=== PATIENT | female | born 1940 | race African-American/Black ===

== ENCOUNTER 2017-11-06 16:54 | Inpatient (IN) | payer MEDICARE ==
[~2017-11-06] VITALS: Ht 157.5 cm; Wt 89.6 kg
[~2017-11-06 16:54] MED LIST: ALPHAGAN OPHTH D5 ML OU; COLACE 100100 MG/CAP PO; NORCO 325 MG-51 TAB PO; NOVOLOGMIX70/30; PRINIVIL20 MG; PROCARDIA XL 6060 MG PO; TRAVATAN Z 5 ML5 ML OU
[2017-11-06] MEDS ORDERED: LIPITOR20 MG PO (17:36)
[2017-11-06] MEDS ORDERED: ASPIRIN 81M81 MG/TA2 PO (17:36)
[2017-11-06] MEDS ORDERED: ADVIL200 MG PO (17:37)
[2017-11-06] MEDS ORDERED: NOVOLIN 70/30 710 ML SQ (17:39)
[2017-11-06] MEDS ORDERED: NYSTATIN CREAM15 GM TP (17:40)
[2017-11-06 17:46] VITALS: BP 149/60; PULSE 100; TEMP 99.8
[2017-11-06] MEDS ORDERED: TYLENOL 325MG325 MG PO (17:52)
[2017-11-06] MEDS ORDERED: TRAVATAN Z 2.52.5 ML OU (17:56)
[2017-11-06] MEDS ORDERED: ALPHAGAN OPHTH D5 ML (17:56)
[2017-11-06 21:17] VITALS: BP 119/60; PULSE 78; TEMP 97.4
[2017-11-07] VITALS (10 sets, daily range): BP systolic 114–195; BP diastolic 58–97; PULSE 57–78; TEMP 98.1–99
[2017-11-08 02:11] VITALS: BP 109/52; PULSE 65; TEMP 98.7
[2017-11-08 05:32] VITALS: BP 144/69; PULSE 73; TEMP 98.3
[2017-11-08 10:06] VITALS: BP 137/69; PULSE 87; TEMP 98.6
[2017-11-08 13:41] VITALS: BP 130/69; PULSE 78; TEMP 98.7
[2017-11-08] MEDS ORDERED: AMOXICILLIN 8751 TAB PO (17:32)
== END 2017-11-08 18:45 | disposition home or self-care (01) | DRG 392 ==
LOC: SURG 16:54
PROC: 0W9J3ZZ Drainage of Pelvic Cavity, Percutaneous Approach (ICD-10-PCS; principal; 2017-11-07)
DX: R10.31 Right lower quadrant pain (principal); R18.8 Other ascites; I10 Essential (primary) hypertension; E11.65 Type 2 diabetes mellitus with hyperglycemia; E78.2 Mixed hyperlipidemia; Z79.4 Long term (current) use of insulin; Z90.5 Acquired absence of kidney
CPT/HCPCS: 99232-AI; J0696; J1815; J2250; J2270; J7030; Q9967

== ENCOUNTER 2017-12-14 07:50 | Day surgery (SDC) | payer MEDICARE ==
[~2017-12-14] VITALS: Ht 160 cm; Wt 88.7 kg
[~2017-12-14 07:50] MED LIST changes: +ADVIL200 MG PO; +ALPHAGAN OPHTH D5 ML; +AMOXICILLIN 8751 TAB PO; +ASPIRIN 81M81 MG/TA2 PO; +LIPITOR20 MG PO; +NOVOLIN 70/30 710 ML SQ; +NYSTATIN CREAM15 GM TP; +TRAVATAN Z 2.52.5 ML OU; +TYLENOL 325MG325 MG PO
[2017-12-14] MEDS ORDERED: NOVOLOGMIX70/30 SQ ×2 (08:17)
[2017-12-14] MEDS ORDERED: PROCARDIA XL 6060 MG PO (08:18)
[2017-12-14] MEDS ORDERED: PRINIVIL40 MG PO (08:18)
[2017-12-14] MEDS ORDERED: NYSTATIN CREAM15 GM TP (08:19)
[2017-12-14] MEDS ORDERED: ADVIL200 MG PO (08:19)
[2017-12-14] MEDS ORDERED: ASPIRIN E.C. 8181 MG PO (08:20)
[2017-12-14] MEDS ORDERED: LIPITOR20 MG PO (08:20)
[2017-12-14 08:41] VITALS: BP 132/96; PULSE 70; TEMP 97.7
[2017-12-14 09:35] VITALS: BP 98/56; PULSE 74; TEMP 97.4
[2017-12-14 09:45] VITALS: BP 116/74; PULSE 73
[2017-12-14 10:00] VITALS: BP 134/79; PULSE 73
[2017-12-14 11:54] VITALS: BP 107/53; PULSE 66
== END 2017-12-14 10:20 | disposition home or self-care (01) ==
LOC: SDCO 07:50
DX: K65.1 Peritoneal abscess (principal); E11.9 Type 2 diabetes mellitus without complications; I10 Essential (primary) hypertension; M19.90 Unspecified osteoarthritis, unspecified site; E78.00 Pure hypercholesterolemia, unspecified; Z90.710 Acquired absence of both cervix and uterus; Z90.49 Acquired absence of other specified parts of digestive tract; Z90.5 Acquired absence of kidney; Z79.4 Long term (current) use of insulin
CPT/HCPCS: OP; J2250; J2704; J7030

== ENCOUNTER 2018-12-30 20:33 | Emergency (ER) | payer MEDICARE ==
[~2018-12-30] VITALS: Ht 160 cm; Wt 89.1 kg
[~2018-12-30 20:33] MED LIST changes: +ASPIRIN E.C. 8181 MG PO; +NOVOLOGMIX70/30 SQ; +PRINIVIL40 MG PO
[2018-12-30 20:42] VITALS: TEMP 98.5
[2018-12-30 21:31] LABS: BASO % 0.7 % (0.0-2.0); EOS % 0.7 % (0-4.0); GRAN # 3.2 (1.4-6.5); GRAN % 69.6 % (42.2-75.2); HEMOGLOBIN 11.4 g/dl (12.5-16.0); LYMPH % 22.2 % (20.0-51.0); MEAN CELL VOLUME 86 fl (80.0-100.0); MEAN CORPUSCULAR HEMOGLOBIN 27 pg (27.0-31.0); MEAN CORPUSCULAR HGB CONC 32 g/dl (33.0-37.0); MEAN PLATELET VOLUME 10.9 fl (7.4-10.4); MONO # 0.3 (0.1-0.6); MONO % 6.4 % (1.7-9.3); PLATELET COUNT 186 K/mm3 (130-400); RED BLOOD COUNT 4.16 M/mm3 (4.10-5.30); REDCELL DISTRIBUTION WIDTH-CV 14.7 % (11.5-14.5)
[2018-12-30 21:33] LABS: HEMATOCRIT 35.7 % (37.0-47.0)
[2018-12-30 21:43] LABS: ALBUMIN 4.2 gm/dL (3.5-5.0); BILIRUBIN,TOTAL 0.2 mg/dL (0.0-1.0); CALCIUM 9.5 mg/dL (8.4-10.2); CREATININE, serum 1.1 mg/dL (0.52-1.25); POTASSIUM 4.4 mmol/L (3.4-5.0)
[2018-12-30 21:56] LABS: TROPONIN-I 0.054 ng/mL (0.000-0.035)
[2018-12-31 00:20] VITALS: BP 133/80; PULSE 83
== END 2018-12-31 00:21 | disposition home or self-care (01) ==
LOC: COL.ER 20:33
PROVIDERS: Emergency Medicine
DX: I10 Essential (primary) hypertension (principal); E11.9 Type 2 diabetes mellitus without complications; E78.5 Hyperlipidemia, unspecified; Z79.4 Long term (current) use of insulin; Z79.82 Long term (current) use of aspirin; Z79.1 Long term (current) use of non-steroidal anti-inflammatories (NSAID); Z85.528 Personal history of other malignant neoplasm of kidney; Z90.49 Acquired absence of other specified parts of digestive tract

== ENCOUNTER 2019-12-13 18:59 | Inpatient (IN) | payer MEDICARE ==
[~2019-12-13] VITALS: Ht 157.5 cm; Wt 96.0 kg
[2019-12-13 20:13] LABS: BASO % 0.7 % (0.0-2.0); EOS # 0.1 (0.0-0.7); EOS % 1.4 % (0-4.0); GRAN # 1.9 (1.4-6.5); GRAN % 46.1 % (42.2-75.2); HEMATOCRIT 37.2 % (37.0-47.0); LYMPH # 1.8 (1.2-3.4); LYMPH % 42.4 % (20.0-51.0); MEAN CELL VOLUME 85 fl (80.0-100.0); MEAN CORPUSCULAR HEMOGLOBIN 27 pg (27.0-31.0); MEAN CORPUSCULAR HGB CONC 32 g/dl (33.0-37.0); MEAN PLATELET VOLUME 10.9 fl (7.4-10.4); MONO # 0.4 (0.1-0.6); MONO % 9.2 % (1.7-9.3); PLATELET COUNT 169 K/mm3 (130-400); RED BLOOD COUNT 4.39 M/mm3 (4.10-5.30); REDCELL DISTRIBUTION WIDTH-CV 14.2 % (11.5-14.5)
[2019-12-13] MEDS ORDERED: NATURAL IRON65 MG (20:15)
[2019-12-13] MEDS ORDERED: TURMERIC500 MG PO (20:15)
[2019-12-13 20:19] LABS: INR 0.9 (0.8-3.0); PROTHROMBIN TIME 10.5 SECONDS (9.7-12.8)
[2019-12-13 20:21] LABS: PARTIAL THROMBOPLASTIN TIME 30.5 SECONDS (26.0-37.0)
[2019-12-13 20:22] LABS: ALBUMIN 4.6 gm/dL (3.5-5.0); BILIRUBIN,TOTAL 0.3 mg/dL (0.0-1.0); CALCIUM 9.5 mg/dL (8.4-10.2); CREATININE, serum 0.93 (0.52-1.25)
[2019-12-13] MEDS ORDERED: NOVOLOGMIX70/30 (22:52)
--- NOTE | 2019-12-13 22:57 | NUR ---
Received report from JAELYN Adam from ED. Pt arrived to medical unit room 357 at 2355.
[2019-12-13 23:36] VITALS: BP 142/65; PULSE 68; TEMP 98
[2019-12-14] VITALS (11 sets, daily range): BP systolic 78–151; BP diastolic 47–77; PULSE 45–71; TEMP 97–98.9
--- NOTE | 2019-12-14 01:59 | NUR ---
Assessment complete. Alert and oriented. Dtr at bedside. Denies any pain, nausea, abdominal pain or any discomfort at this time. IV to LAC intact, flushed, started NS 75ml/hr. NPO status, pt understands. Insulin administered. SCD in place to BLE. Tele monitor in place, leads checked. Needs met. Call light within reach.
--- NOTE | 2019-12-14 05:23 | NUR ---
No complaints made. needs met. dtr remained at bedside. Call light within reach.
--- NOTE | 2019-12-14 06:54 | NUR ---
Report given to JAELYN Olivas.
[2019-12-14 07:55] LABS: BASO % 0.8 % (0.0-2.0); EOS # 0.1 (0.0-0.7); EOS % 2.3 % (0-4.0); GRAN # 1.4 (1.4-6.5); GRAN % 39.1 % (42.2-75.2); HEMOGLOBIN 10.7 g/dl (12.5-16.0); LYMPH # 1.7 (1.2-3.4); LYMPH % 46.7 % (20.0-51.0); MEAN CELL VOLUME 85 fl (80.0-100.0); MEAN CORPUSCULAR HEMOGLOBIN 27 pg (27.0-31.0); MEAN CORPUSCULAR HGB CONC 32 g/dl (33.0-37.0); MEAN PLATELET VOLUME 11.1 fl (7.4-10.4); MONO # 0.4 (0.1-0.6); MONO % 10.8 % (1.7-9.3); PLATELET COUNT 177 K/mm3 (130-400); RED BLOOD COUNT 3.98 M/mm3 (4.10-5.30); REDCELL DISTRIBUTION WIDTH-CV 14.2 % (11.5-14.5)
[2019-12-14 08:01] LABS: CALCIUM 8.9 mg/dL (8.4-10.2); CREATININE, serum 0.83 (0.52-1.25); POTASSIUM 3.8 mmol/L (3.4-5.0)
[2019-12-14 08:11] LABS: HEMATOCRIT 33.8 % (37.0-47.0)
--- NOTE | 2019-12-14 10:00 | NUR ---
Patient lives at home with her daughter (Gracie John [phone]) and two grandchildren in [place], [place] and plans to return home upon recovery. Patient is mostly independent with daily living activities and is a retired [employer]. Patient does not have any durable medical equipment ancticipated needs at this time, her primary care physician is Cara King, and her pharmacy is [email or web address]. Patient does have advance directives for healthcare completed (her daughter Gracie John is DPOA). No further needs at this time and manager social will follow as needed.
--- NOTE | 2019-12-14 11:39 | NUR ---
Pt resting in bed, no C/O pain at this time, returned from procedure @ 1010, shift assessments complete, left Pt call light in reach, bed in lowest position.
[2019-12-14] MEDS ORDERED: AMOXICILLIN 50500 MG PO (14:24)
[2019-12-14] MEDS ORDERED: BIAXIN 500MG T500 MG PO (14:25)
[2019-12-14] MEDS ORDERED: PROTONIX 40MG T40 MG PO (14:26)
--- NOTE | 2019-12-14 17:48 | NUR ---
Pt discharged to home, discussed discharge packet with Pt and family, escorted to entrance, left with family via private transportation.
== END 2019-12-14 17:50 | disposition home or self-care (01) | DRG 379 ==
LOC: COL.ER 18:59 → MEDICAL 22:18
PROVIDERS: Emergency Medicine; Internal Medicine Gastroenterology; Nurse Practitioner Family; ADMIT Student in an Organized Health Care Education/Training Program
PROC: 0DB68ZX Excision of Stomach, Via Natural or Artificial Opening Endoscopic, Diagnostic (ICD-10-PCS; principal; 2019-12-14 09:45)
DX: K29.51 Unspecified chronic gastritis with bleeding (principal); E78.5 Hyperlipidemia, unspecified; I10 Essential (primary) hypertension; E11.9 Type 2 diabetes mellitus without complications; K44.9 Diaphragmatic hernia without obstruction or gangrene; B96.81 Helicobacter pylori [H. pylori] as the cause of diseases classified elsewhere; D50.0 Iron deficiency anemia secondary to blood loss (chronic); Z90.49 Acquired absence of other specified parts of digestive tract; Z90.5 Acquired absence of kidney; Z79.4 Long term (current) use of insulin; Z85.528 Personal history of other malignant neoplasm of kidney; Z90.710 Acquired absence of both cervix and uterus; Z79.82 Long term (current) use of aspirin; Z87.891 Personal history of nicotine dependence; Z88.8 Allergy status to other drugs, medicaments and biological substances
CPT/HCPCS: OP; C9113; J1815; J2250; J3010; J7030

== ENCOUNTER 2019-12-20 03:47 | Emergency (ER) | payer MEDICARE ==
[~2019-12-20] VITALS: Ht 157.5 cm; Wt 77.3 kg
[~2019-12-20 03:47] MED LIST changes: +AMOXICILLIN 50500 MG PO; +BIAXIN 500MG T500 MG PO; +NATURAL IRON65 MG; +PROTONIX 40MG T40 MG PO; +TURMERIC500 MG PO
[2019-12-20 04:06] VITALS: TEMP 97.8
[2019-12-20 05:06] LABS: ALBUMIN 3.7 gm/dL (3.5-5.0); BILIRUBIN,TOTAL 0.6 mg/dL (0.0-1.0); CALCIUM 7.7 mg/dL (8.4-10.2); CREATININE, serum 0.85 (0.52-1.25); POTASSIUM 3.3 mmol/L (3.4-5.0); TOTAL PROTEIN 6.8 gm/dL (6.4-8.2)
[2019-12-20 06:01] LABS: COLLECTION METHOD CLEAN CATCH
[2019-12-20 06:06] LABS: PH 5 (5-8); URINE APPEARANCE Clear; URINE BACTERIA Rare /hpf; URINE BILIRUBIN Negative (NEGATIVE); URINE BLOOD Negative (NEGATIVE); URINE COLOR Yellow; URINE GLUCOSE Negative (NEGATIVE); URINE KETONE Trace (NEGATIVE); URINE LEUKOCYTE ESTERASE Negative (NEGATIVE); URINE NITRATE Negative (NEGATIVE); URINE PROTEIN(semi-quant) Negative (NEGATIVE); URINE RBC 0-2 /hpf; URINE UROBILINOGEN Negative (NEGATIVE)
[2019-12-20 07:20] LABS: BASO % 0.8 % (0.0-2.0); EOS % 0.3 % (0-4.0); GRAN # 2.6 (1.4-6.5); GRAN % 71.3 % (42.2-75.2); HEMOGLOBIN 10.8 g/dl (12.5-16.0); LYMPH # 0.7 (1.2-3.4); LYMPH % 20.2 % (20.0-51.0); MEAN CELL VOLUME 84 fl (80.0-100.0); MEAN CORPUSCULAR HEMOGLOBIN 27 pg (27.0-31.0); MEAN CORPUSCULAR HGB CONC 32 g/dl (33.0-37.0); MEAN PLATELET VOLUME 10.4 fl (7.4-10.4); MONO # 0.3 (0.1-0.6); MONO % 7.1 % (1.7-9.3); PLATELET COUNT 173 K/mm3 (130-400); RED BLOOD COUNT 3.99 M/mm3 (4.10-5.30); REDCELL DISTRIBUTION WIDTH-CV 14.3 % (11.5-14.5)
[2019-12-20 07:21] LABS: HEMATOCRIT 33.6 % (37.0-47.0)
[2019-12-20 07:45] VITALS: BP 143/86; PULSE 72
== END 2019-12-20 07:57 | disposition home or self-care (01) ==
LOC: COL.ER 03:47
PROVIDERS: Emergency Medicine
DX: R10.10 Upper abdominal pain, unspecified (principal); E11.9 Type 2 diabetes mellitus without complications; I10 Essential (primary) hypertension; Z79.4 Long term (current) use of insulin
CPT/HCPCS: J2405; J3010; J7030